=== PATIENT | male | born 1950 | race Caucasian/White ===

== ENCOUNTER 2025-06-28 18:46 | Inpatient (IN) | payer SELFPAY ==
[~2025-06-28] VITALS: Ht 165.1 cm; Wt 64.4 kg
[2025-06-28 18:48] VITALS: O2SAT 99
[2025-06-28 20:21] LABS: INR 1.0
[2025-06-28 20:24] LABS: CREATININE 1.2 mg/dL (0.6-1.3)
[2025-06-28 20:25] LABS: ETHANOL BLOOD < 10 mg/dL (<10); PROTEIN TOTAL 7.0 g/dL (6.0-8.3); UREA NITROGEN BLOOD 10 mg/dL (9-23)
[2025-06-28 20:26] LABS: ASPARTATE AMINOTRANSFERASE 35 IU/L (<34)
[2025-06-28 20:27] LABS: BILIRUBIN DIRECT 0.1 mg/dL (<=3.0); BILIRUBIN TOTAL 0.4 mg/dL (0.1-1.0); TROPONIN I HIGH SENSITIVITY 8 ng/L (3.0-53)
[2025-06-28 20:48] LABS: BASOPHILS % 0.6 % (0.0-2.0); EOSINOPHILS % 2.5 % (0.0-5.0); HEMATOCRIT. 46.4 % (42.0-52.0); HEMOGLOBIN. 15.1 g/dL (14.0-18.0); LYMPHOCYTES % 17.0 % (20.0-50.0); MEAN PLATELET VOLUME 9.1 fl (7.4-10.4); MONOCYTES % 8.1 % (2.0-8.0); NEUTROPHILS % 71.8 % (40.0-76.0); PLATELET 243 x1000/uL (130-400); RED BLOOD CELL COUNT 5.04 mill/uL (4.7-6.1); RED CELL DISTRIBUTION WIDTH 14.1 % (11.6-14.6)
[2025-06-28 21:18] LABS: INFLUENZA TYPE A Presumptive Negative (Pres. Neg.)
[2025-06-28 21:19] LABS: INFLUENZA TYPE B Presumptive Negative (Pres. Neg.)
[2025-06-28 21:22] LABS: CLARITY URINE CLEAR (CLEAR); COLOR URINE YELLOW (YELLOW); GLUCOSE URINE NEGATIVE (NEGATIVE); KETONES URINE NEGATIVE (NEGATIVE); LEUKOCYTE ESTERASE URINE NEGATIVE (NEGATIVE); NITRITE URINE NEGATIVE (NEGATIVE); OCCULT BLOOD URINE NEGATIVE (NEGATIVE); PH URINE 7.0 (4.5-8.0); PROTEIN URINE TRACE (NEGATIVE); SPECIFIC GRAVITY URINE 1.017 (1.005-1.030); UROBILINOGEN URINE 1.0 E.U./dL (0.2-1.0)
[2025-06-28 21:30] LABS: *AMPHETAMINES SCREEN URINE NEGATIVE (NEGATIVE); *BARBITURATES SCREEN URINE NEGATIVE (NEGATIVE); *BENZODIAZEPINES SCREEN URINE NEGATIVE (NEGATIVE); *COCAINE SCREEN URINE NEGATIVE (NEGATIVE); CANNABINOID URINE SCREEN NEGATIVE (NEGATIVE); ECSTASY MDMA SCREEN URINE NEGATIVE (NEGATIVE); METHADONE URINE SCREEN NEGATIVE (NEGATIVE); OPIATES URINE SCREEN NEGATIVE (NEGATIVE); PHENCYCLIDINE URINE SCREEN NEGATIVE (NEGATIVE)
[2025-06-28 21:40] LABS: BACTERIA URINE NONE SEEN; RBC URINE NONE SEEN /hpf (0-2); SQUAMOUS EPITHELIAL CELL URINE RARE /lpf (RARE/1+); WBC URINE NONE SEEN /hpf (0-2)
[2025-06-28 22:57] LABS: TROPONIN I HIGH SENSITIVITY 9 ng/L (3.0-53)
[2025-06-28] MEDS: SODIUM CHLORIDE 0.9% 1,000 ML IV ONE ×2 (23:13)
[2025-06-28] MEDS: SODIUM ZIRCONIUM CYCLOSILICATE 10GM/PACKET PO SCH (23:13)
[2025-06-28] MEDS: INSULIN REGULAR (HUMULIN R) 1000UNITS/10ML VIAL IV NR (23:14)
[2025-06-28] MEDS: DEXTROSE 50% WATER 50ML SYRINGE IV NR (23:14)
[2025-06-28] MEDS ORDERED: ONDANSETRON HCL 4MG/2ML INJ IV PRN (23:30)
[2025-06-28] MEDS ORDERED: MORPHINE SULFATE 2 MG/ML INJ (NOT FOR IM USE) IV PRN (23:30)
[2025-06-28] MEDS ORDERED: ZOLPIDEM TARTRATE 5MG TABLET PO PRN (23:30)
[2025-06-28] MEDS: SODIUM CHLORIDE 0.9% 1,000 ML IV SCH (23:30)
[2025-06-28] MEDS ORDERED: MAGNESIUM/ALUMINUM HYDROXIDE/SIMETHICONE 30ML UDC PO PRN (23:30)
[2025-06-28] MEDS ORDERED: HYDROCODONE/ACETAMINOPHEN 5/325MG TABLET PO PRN (23:30)
[2025-06-28] MEDS ORDERED: ACETAMINOPHEN 325MG TABLET PO PRN (23:30)
[2025-06-28] MEDS ORDERED: NALOXONE HCL 0.4MG/ML VIAL IV PRN (23:45)
[2025-06-29 00:30] VITALS: BP 155/99; PULSE 95; RESP 20; TEMP 36.6; TEMP 36.6404; O2SAT 99
[2025-06-29] MEDS ORDERED: METF-1149 PO (01:56)
[2025-06-29 04:00] VITALS: BP 146/87; PULSE 89; RESP 20; TEMP 36.9; O2SAT 99
[2025-06-29 06:06] LABS: CREATININE 0.9 mg/dL (0.6-1.3); UREA NITROGEN BLOOD 8 mg/dL (9-23)
[2025-06-29 06:07] LABS: TROPONIN I HIGH SENSITIVITY 10 ng/L (3.0-53)
[2025-06-29 08:00] VITALS: BP 140/74; PULSE 80; RESP 18; TEMP 36.7; O2SAT 98
[2025-06-29] MEDS: ENOXAPARIN 40MG/0.4ML SYR SUBCUT SCH (09:21)
[2025-06-29] MEDS: PANTOPRAZOLE SODIUM 40 MG/VIAL IV SCH (10:01)
[2025-06-29 12:00] VITALS: BP_SYST 136; BP_SYST 190; BP_DIAS 120; BP_DIAS 70; PULSE 78; RESP 18; TEMP 36.8; O2SAT 97
[2025-06-29] MEDS: CLONIDINE 0.1MG TABLET PO PRN (13:25)
[2025-06-29] MEDS: POTASSIUM CHLORIDE 20MEQ TABLET SR PO SCH (13:25)
[2025-06-29] MEDS ORDERED: DEXTROSE 50% WATER 50ML SYRINGE IV PRN (13:45)
[2025-06-29 14:40] LABS: BASOPHILS % 0.7 % (0.0-2.0); EOSINOPHILS % 3.0 % (0.0-5.0); HEMATOCRIT. 40.1 % (42.0-52.0); HEMOGLOBIN. 13.8 g/dL (14.0-18.0); LYMPHOCYTES % 30.6 % (20.0-50.0); MEAN PLATELET VOLUME 8.6 fl (7.4-10.4); MONOCYTES % 13.2 % (2.0-8.0); NEUTROPHILS % 52.5 % (40.0-76.0); PLATELET 243 x1000/uL (130-400); RED BLOOD CELL COUNT 4.18 mill/uL (4.7-6.1); RED CELL DISTRIBUTION WIDTH 14.0 % (11.6-14.6)
[2025-06-29 16:00] VITALS: BP 150/100; PULSE 85; RESP 18; TEMP 36.7; O2SAT 99
[2025-06-29] MEDS: AMLODIPINE 10MG TABLET PO SCH (17:16)
[2025-06-29] MEDS: MVI, ADULT NO.1 10 ML, FOLIC ACID 1 MG, THIAMINE HCL 100 MG in SODIUM CHLORIDE 0.9% 1,0... IV SCH (17:19)
[2025-06-29] MEDS: BLOOD SUGAR DIAGNOSTIC STRIP TEST SCH (17:40)
[2025-06-29] MEDS: INSULIN LISPRO 100 UNITS/ML SUBCUT SCH (18:06)
[2025-06-29 19:16] LABS: TROPONIN I HIGH SENSITIVITY 10 ng/L (3.0-53)
[2025-06-29 20:00] VITALS: BP 142/84; PULSE 86; RESP 18; TEMP 36.7; O2SAT 98
[2025-06-30] VITALS: BP 141/91; PULSE 77; RESP 16; TEMP 36.7; O2SAT 97
[2025-06-30 04:00] VITALS: BP 136/94; PULSE 78; RESP 16; TEMP 36.6; O2SAT 99
[2025-06-30 07:43] LABS: CREATININE 0.8 mg/dL (0.6-1.3)
[2025-06-30 07:44] LABS: UREA NITROGEN BLOOD 6 mg/dL (9-23)
[2025-06-30 07:56] VITALS: BP 140/88; PULSE 77; RESP 19; TEMP 36.4; O2SAT 98
[2025-06-30 08:25] LABS: HEMATOCRIT. 41.2 % (42.0-52.0); HEMOGLOBIN. 14.0 g/dL (14.0-18.0); MEAN PLATELET VOLUME 8.1 fl (7.4-10.4); PLATELET 254 x1000/uL (130-400); RED BLOOD CELL COUNT 4.34 mill/uL (4.7-6.1); RED CELL DISTRIBUTION WIDTH 14.1 % (11.6-14.6)
[2025-06-30] MEDS ORDERED: THIA100T72 MT (10:52)
[2025-06-30] MEDS ORDERED: AMLO10TA80 PO (10:52)
[2025-06-30] MEDS: POTASSIUM CHLORIDE 20MEQ TABLET SR PO NR (11:25)
[2025-06-30 12:00] VITALS: BP 124/80; PULSE 86; RESP 19; TEMP 36.6; O2SAT 98
[2025-06-30 12:32] VITALS: BP 124/80; PULSE 86; RESP 18; TEMP 97.5
[2025-06-30 13:42] LABS: EOSINOPHILS % MANUAL 1.0 % (0.0-5.0); LYMPHOCYTES % MANUAL 42.0 % (20.0-50.0); MONOCYTES % MANUAL 9.0 % (2.0-8.0); NEUTROPHILS % MANUAL 48.0 % (45.0-75.0); PLATELET ESTIMATE NORMAL
== END 2025-06-30 16:07 | disposition home or self-care (01) | DRG 422 ==
LOC: ER 18:46 → EDBEDREQ 23:29 → EDBEDREQTM 23:29 → 7WST 23:35 → ENRESERV 23:48
PROVIDERS: ADMIT Internal Medicine; ATTEND Internal Medicine
DX: E86.0 Dehydration (principal); E11.9 Type 2 diabetes mellitus without complications; F10.10 Alcohol abuse, uncomplicated; I10 Essential (primary) hypertension; J06.9 Acute upper respiratory infection, unspecified; E87.5 Hyperkalemia; E87.6 Hypokalemia; Y90.9 Presence of alcohol in blood, level not specified
CPT/HCPCS: 36415; 71045; 80048; 80076; 80305; 80320; 81003; 82962; 83036; 83880; 84443; 84484; 85025; 87426; 87804; 93005; 93880; 93970; 96361; 96374; 99285; A4606; J1650; J1815; J2470; J3411; J3490; J7030; G0480